=== PATIENT | male | born 1950 | race Two or more races ===

== ENCOUNTER 2016-10-04 07:55 | Inpatient (IN) | payer MEDICARE, BC ==
--- NOTE | 2016-10-03 17:08 | Pre-op HX & Phy Repo 2 SIG ---
DATE OF ADMISSION: 10/04/2016 HISTORY OF PRESENT ILLNESS: The patient is a 66-year-old, male, in overall good health with a malfunctioning Frye continent ileostomy with intermittent difficulty with intubation and recurring pouchitis. The patient has a past history of ulcerative colitis and underwent proctocolectomy with creation of a Frye type of continent ileostomy in 1999. He has required several revisions, most recently in 2013. He has done well taking Cipro and Flagyl for occasional episodes of pouchitis. In August of this year, he developed difficulty intubating with the catheter almost all the way into the pouch with his 30-Italian catheter, but he could get a 24-Italian catheter in without any difficulty. He was also having difficulty controlling symptoms of pouchitis with gas and rumbling and watery output. Cipro and Flagyl were not effective, and he was started on Omnicef (cefdinir) 300 mg every 12 hours with great improvement. He had much reduced cramping and gas, and his intubations became easier, but at times it has taken him 5 minutes to get a catheter in and has to lie on the floor. The difficulty is 3 to 4 inches into the stoma tract. The patient is scheduled to undergo pouch endoscopy, and if this indicates a surgical problem, he will be admitted and prepared for surgery the following day including laparotomy and whatever revision is appropriate. PAST MEDICAL HISTORY: MEDICATIONS: Cipro or Flagyl for pouchitis. ALLERGIES: None. OPERATIONS: See complete list at the end of this dictation. He has also undergone vasectomy in 1989, varicocelectomy in 1984, and extraction of a right ureteral kidney stone in October 2003 with a stent at that time. PHYSICAL EXAMINATION: The patient is 5 foot 10 inches and approximately 175 pounds. [place] will be examined upon arrival and dictated separately. IMPRESSION: 1. Malfunctioning Frye continent ileostomy with difficulty with intubation and recurring pouchitis, but no incontinence. 2. History of ulcerative colitis. 3. History of left upper extremity deep vein thrombosis from a PICC line in 2013. 4. STATUS POST MULTIPLE ABDOMINAL OPERATIONS: 4.1. Proctocolectomy and Frye continent ileostomy in November 1999. 4.2. Laparotomy with revision of Frye continent ileostomy nipple valve in February 2000. 4.3. Laparotomy with creation of new valve and stoma with preservation of the Frye pouch and relocation of the stoma to the left lower quadrant on 07/24/2013. 4.4. Laparotomy with complex reconstruction of Frye continent ileostomy with creation of new valve and stoma on 12/26/2013. DISCUSSION: I have had a full discussion with the patient about the pouch endoscopy, which he has undergone previously without any anesthesia or sedation given or required. Based on those findings, we will determine whether he needs more vigorous aggressive treatment of chronic pouchitis or whether there is some angulation that will require surgical revision of his pouch. Kaveh Reyes M.D. DR: ARVIN JOB#: [id number] CC:
[~2016-10-04] VITALS: Ht 175.3 cm; Wt 80.7 kg
[~2016-10-04 07:55] MED LIST: DAILY MULTIPLE1 EACH ORAL
--- NOTE | 2016-10-04 08:08 | Pre-Procedure Note/Attestation ---
Pre-Procedure Note/Attestation Complete Prior to Procedure Planned Procedure: not applicable Procedure Narrative: Frye Continent Ileostomy pouch endoscopy Indications for Procedure Pre-Operative Diagnosis: Malfunctioning Frye Continent Ileostomy with difficulty with intubation and pouchitis Attestation I attest that I discussed the nature of the procedure; its benefits; risks and complications; and alternatives (and the risks and benefits of such alternatives ), prior to the procedure, with the patient (or the patient's legal off premise service representative). I attest that, if there was a reasonable possibility of needing a blood transfusion, the patient (or the patient's legal off premise service representative) was given the [facility] standardized written summary, pursuant to the [facility] Blood Safety Act ([place] Health and Safety Code # 1645, as amended). I attest that I re-evaluated the patient just prior to the surgery and that there has been no change in the patient's H&P, except as documented below: none TONY GA Oct 04, 2016 08:08
[2016-10-04 08:23] VITALS: BP 130/88
--- NOTE | 2016-10-04 09:12 | Brief Operative Note ---
Immediate Post Operative Note Operative Note Pre-op Diagnosis: Malfunctioning Frye Continent Ileostomy with difficulty with intubation and pouchitis Procedure: Frye continent ileostomy pouch endoscopy Post-op Diagnosis: Angulations of access segment Post-op Diagnosis: same as pre-op Findings: consistent w/pre-op dx studies Surgeon: luiz Anesthesia: other - none Specimen: none Complications: none Condition: stable Fluids: none Estimated Blood Loss: none Drains: other - 24 Luxembourgish Holguin to Frye continent ileostomy pouch Implant(s) used?: TONY Flowers Oct 04, 2016 09:12
[2016-10-04 09:20] VITALS: BP 114/75
[2016-10-04] MEDS ORDERED: Zolpidem 5mg tab ORAL PRN (09:30)
[2016-10-04] MEDS ORDERED: ALLOPURINOL100 M1 ORAL (09:59)
[2016-10-04 10:22] LABS: BASOPHILS % (AUTO) 1.9 % (0.0-2.0); EOSINOPHILS % (AUTO) 2.1 % (0.0-3.0); LYMPHOCYTES % (AUTO) 21.2 % (20.0-45.0); MEAN CORPUSCULAR HEMOGLOBIN 30.7 PG (27.0-31.0); MEAN CORPUSCULAR HGB CONC 34.4 G/DL (32.0-36.0); MEAN CORPUSCULAR VOLUME 89 FL (80-99); MEAN PLATELET VOLUME 7.7 FL (6.5-10.1); MONOCYTES % (AUTO) 7.7 % (1.0-10.0); NEUTROPHILS % (AUTO) 67.2 % (45.0-75.0); PLATELET COUNT 231 K/UL (150-450); RED BLOOD COUNT 5.04 M/UL (4.70-6.10); RED CELL DISTRIBUTION WIDTH 11.6 % (11.6-14.8)
[2016-10-04] MEDS ORDERED: Lidocaine/Epinephrine 2% 20 ML VIAL INJ ONE (10:30)
[2016-10-04 10:35] LABS: INR 1.1 (0.9-1.1); PROTHROMBIN TIME 11.1 SEC (9.30-11.50)
[2016-10-04 10:38] LABS: ALANINE AMINOTRANSFERASE 21 U/L (3-41); ALBUMIN/GLOBULIN RATIO 1.3 (1.0-2.7); ANION GAP 16 (5-15); ASPARTATE AMINO TRANSFERASE 29 U/L (5-40); CALCIUM 9.6 mg/dL (8.6-10.2); CARBON DIOXIDE 24 mEQ/L (20-30); CHLORIDE 101 mEQ/L (98-107); CREATININE 1.2 mg/dL (0.7-1.2); GLOMERULAR FILTRATION RATE > 60 mL/min (>60); POTASSIUM 4.2 mEQ/L (3.4-4.9); SODIUM 141 mEQ/L (135-145); TOTAL PROTEIN 7.2 g/dL (6.6-8.7)
[2016-10-04 10:39] LABS: HEMOLYSIS 7; IRON 178 ug/dL (59-158); TOTAL IRON BINDING CAPACITY 367 ug/dL (250-400)
--- NOTE | 2016-10-04 10:40 | Diagnostic Imaging Report ---
Indication: Chest Pain Comparison: 12/25/13 A single view chest radiograph was obtained. Findings: Lungs are clear. Cardiac mediastinal silhouette is normal. Bones are osteopenic. Impression: No acute findings
[2016-10-04 10:48] LABS: FERRITIN 125 ng/mL (10-230)
--- NOTE | 2016-10-04 10:58 | Pre-op HX & Phy Repo 2 SIG ---
DATE OF ADMISSION: 10/04/2016 HISTORY OF PRESENT ILLNESS: Please see previously dictated history. The patient states that he is taking allopurinol daily. He is otherwise in stable health with no changes from the previous dictation. PHYSICAL EXAMINATION: VITAL SIGNS: The patient is 5 feet 10 inches, 175 pounds. HEENT: Within normal limits. LUNGS: Clear. HEART: Regular rhythm. BREASTS: Without masses. ABDOMEN: Soft and flat with multiple healed scars, and the stoma of the Frye continent ileostomy pouch is low in the left lower quadrant. There is no evidence of abdominal wall hernia. Testes and scrotum are within normal limits. RECTAL: Status post proctectomy. EXTREMITIES: Without edema. Pulses 3+ femoral to pedal bilaterally. NEUROLOGIC: Physiologic. IMPRESSION: 1. 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 2. History of ulcerative colitis. 3. History of left upper extremity deep vein thrombosis due to a PICC line in 2013. 4. History of hyperuricemia treated with allopurinol. 4. STATUS POST MULTIPLE ABDOMINAL OPERATIONS: 1. Proctocolectomy and Frye continent ileostomy in November 1999. 2. Laparotomy with revision of Frye continent ileostomy nipple valve February 2000 3. Laparotomy with creation of new valve and stoma with preservation of Frye pouch and relocation of the stoma to the left lower quadrant 07/14- 4. Laparotomy with complex reconstruction of Frye continent ileostomy with creation of new valve and stoma 12/26/2013. PLAN: The patient has undergone pouch endoscopy which reveals multiple angulations of the access segment, but the pouch itself appears healthy with no sign of chronic pouchitis, and the nipple valve was well-formed. The patient will be admitted to undergo a bowel prep, insertion of a PICC line, intravenous hydration, and be prepared for surgery in the morning with preoperative intravenous antibiotics and subcutaneous heparin. He will have an indwelling catheter in his pouch to continuous drainage throughout the day today and leading up to the surgery tomorrow. I have had a full discussion with the patient and his regarding the nature of surgery to include laparotomy and takedown of the stoma and revision based on operative findings, and that the pouch may not need to be opened, but the angulations of the access segment corrected. I have discussed the options of revising the existing pouch, resecting the pouch and creating a new Frye continent ileostomy or resecting the pouch and creating a conventional ileostomy requiring that he wear an external appliance which he has never had and which he certainly hopes to avoid. I have discussed the risks of surgery including bleeding, infection, injury to adjacent structures or organs, recurrent difficulties with the pouch or stoma that could lead to additional treatments or operations, deep vein thrombosis despite prophylaxis, potential need for catheter gastrostomy and need for urinary Holguin catheter, anesthetic reactions, etc. All questions have been answered. He understands and agrees to proceed. Kaveh Reyes M.D. DR: FRANDY JOB#: [id number] CC: ARIEL
[2016-10-04] MEDS ORDERED: Heparin Sod 1000 units/ml 10ml INJ ONE (11:00)
[2016-10-04 11:49] LABS: APPEARANCE,URINE CLEAR; KETONES,URINE 2+ (NEGATIVE); LEUKOCYTE ESTERASE ,URINE NEGATIVE (NEGATIVE); NITRITE,URINE NEGATIVE (NEGATIVE); PH,URINE 6.5 (4.5-8.0); PROTEIN,URINE NEGATIVE (NEGATIVE); UROBILINOGEN,URINE NORMAL MG/DL (0.0-1.0)
[2016-10-04 12:00] VITALS: BP 117/69
[2016-10-04] MEDS ORDERED: Sodium Bicarbonate 8.4% 50ml Inj IV ONE (12:00)
[2016-10-04 12:08] LABS: BACTERIA,URINE FEW /HPF
[2016-10-04] MEDS: Neomycin Sulfate 500mg Tab ORAL SCH ×3 (12:22→21:44)
[2016-10-04] MEDS ORDERED: Heparin 2000 units/Ns 1000ml INJ ONE (12:30)
[2016-10-04] MEDS ORDERED: Lidocaine 1% Plain 30 ml INJ ONE (12:30)
--- NOTE | 2016-10-04 12:44 | General Progress Note ---
Progress Note Progress Note Pouch endoscopy revealed angulations of the access segment, no severe pouchitis , nipple valve well formed Hgb 15.5 BUN 17 Cr 1.2 Iron,ferritin wnl B12 low normal (319) Imp. Malfunctioning Frye continent ileostomy with severe difficulty with intubation Plan: Prepare for surgery in AM IV hydration as soon as PICC is in place f/u CBC,BMP in AM TONY GA Oct 04, 2016 12:44
[2016-10-04] MEDS ORDERED: Vitamin B12 1000mcg/ml Inj IM ONE (14:00)
--- NOTE | 2016-10-04 14:21 | Anethesia Preoperative Eval ---
Anesthesia Pre-op PMH/ROS General Date of Evaluation: Oct 04, 2016 Time of Evaluation: 14:15 Anesthesiologist: Nicki ASA Score: ASA 3 Mallampati Score Class I : Soft palate, uvula, fauces, pillars visible Class II: Soft palate, uvula, fauces visible Class III: Soft palate, base of uvula visible Class IV: Only hard plate visible Mallampati Classification: Class II Surgeon: Eric Diagnosis: Malfunctioning Frye pouch Surgical Procedure: Ex. laparotomy revision of continent pouch Anesthesia History: none Family History: no anesthesia problems Allergies: Coded Allergies: ERYTHROMYCIN BASE (Verified Adverse Reaction, Severe, Nausea/Vomiting/GI Upset, 10/04/16) Past Medical History Cardiovascular: Denies: CAD, HTN, PA, arrhythmia, other, valve dz Pulmonary: Denies: COPD, ANYA, asthma, other Gastrointestinal/Genitourinary: Reports: GERD, other - h/o UC s/p colectomy, Denies: CRI, ESRD Neurologic/Psychiatric: Denies: CVA, TIA, dementia, depression/anxiety, other Endocrine: Denies: DM, hypothyroidism, other, steroids HEENT: Denies: IONE (L), IONE (R), cataract (L), cataract (R), glaucoma, other Hematology/Immune: Denies: DVT, anemia, bleeding disorder, other Musculoskeletal/Integumentary: Denies: DDD, DJD, OA, RA, edema, other PMH Narrative: as above PSxH Narrative: multiple abdominal Sx for creation and maintenance of continent pouch, vasectomy , removal of kidney stone Anesthesia Pre-op Phys. Exam Physician Exam Last Vital Signs Date Time Temp Pulse Resp B/P Pulse Ox O2 Delivery O2 Flow Rate FiO2 10/04/16 12:00 97.5 83 18 117/69 97 Room Air Constitutional: NAD Neurologic: CN 2-12 intact Cardiovascular: RRR, no M/R/G Respiratory: CTA Gastrointestinal: other - multiple scars colostomy in plsce Airway Exam Mallampati Score: Class II MO: limited Neck: stiff ROM: limited Teeth: missing Dentures: no lower, no upper Anesthesia Pre-op A/P Labs Hematology Test 10/04/16 10:10 White Blood Count 6.0 K/UL (4.8-10.8) Red Blood Count 5.04 M/UL (4.70-6.10) Hemoglobin 15.5 G/DL (14.2-18.0) Hematocrit 44.9 % (42.0-52.0) Mean Corpuscular Volume 89 FL (80-99) Mean Corpuscular Hemoglobin 30.7 PG (27.0-31.0) Mean Corpuscular Hemoglobin Concent 34.4 G/DL (32.0-36.0) Red Cell Distribution Width 11.6 % (11.6-14.8) Platelet Count 231 K/UL (150-450) Mean Platelet Volume 7.7 FL (6.5-10.1) Neutrophils (%) (Auto) 67.2 % (45.0-75.0) Lymphocytes (%) (Auto) 21.2 % (20.0-45.0) Monocytes (%) (Auto) 7.7 % (1.0-10.0) Eosinophils (%) (Auto) 2.1 % (0.0-3.0) Basophils (%) (Auto) 1.9 % (0.0-2.0) Coagulation Test 10/04/16 10:10 Prothrombin Time 11.1 SEC (9.30-11.50) Prothromb Time International Ratio 1.1 (0.9-1.1) Activated Partial Thromboplast Time 27 SEC (23-33) Chemistry Test 10/04/16 10:10 Sodium Level 141 mEQ/L (135-145) Potassium Level 4.2 mEQ/L (3.4-4.9) Chloride Level 101 mEQ/L (98-107) Carbon Dioxide Level 24 mEQ/L (20-30) Anion Gap 16 (5-15) H Blood Urea Nitrogen 17 mg/dL (7-23) Creatinine 1.2 mg/dL (0.7-1.2) Estimat Glomerular Filtration Rate > 60 mL/min (>60) Glucose Level 96 mg/dL (74-106) Calcium Level 9.6 mg/dL (8.6-10.2) Iron Level 178 ug/dL (59-158) H Total Iron Binding Capacity 367 ug/dL (250-400) Percent Iron Saturation 49 % (15-50) Unsaturated Iron Binding 189 ug/dL (112-346) Ferritin 125 ng/mL (10-230) Total Bilirubin 0.8 mg/dL (0.0-1.2) Aspartate Amino Transf (AST/SGOT) 29 U/L (5-40) Alanine Aminotransferase (ALT/SGPT) 21 U/L (3-41) Alkaline Phosphatase 60 U/L (40-129) Total Protein 7.2 g/dL (6.6-8.7) Albumin 4.1 g/dL (3.5-5.2) Globulin 3.1 g/dL Albumin/Globulin Ratio 1.3 (1.0-2.7) Vitamin B12 Level 319 pg/mL (211-946) Folate Pending Studies Pre-op Studies: EKG Risk Assessment & Plan Assessment: ASA 3 Plan: GA with ETT Status Change Before Surgery: No Pre-Antibiotics Drug: as scheduled ALFREDO WASHINGTON M.D. Oct 04, 2016 14:21
[2016-10-04] MEDS: D5 1/2NS w/KCl 20mEq 1,000 ML IV SCH (14:59)
--- NOTE | 2016-10-04 15:10 | Diagnostic Imaging Report ---
Indications: Long-term central IV access required for intravenous therapy Technique: The procedure indications, risks, and alternatives were explained to the patient who understands and gives consent to proceed. Strict aseptic technique was utilized, including hand washing, use of hat and mask, use of sterile gown and gloves, sterile ultrasound gel and probe cover, prepping of right arm skin with 2% chlorhexidine solution, and application of full body sterile barrier over this area. Skin and subcutaneous soft tissues were infiltrated with 1% lidocaine and sodium bicarbonate. A small dermatotomy was made, through which the patent adequate size right basilic vein was punctured percutaneously under direct sonographic guidance with a 21-gauge needle. Exchange was made over a 0.018 inch guidewire for a 5 Moroccan peel-away sheath. A PDV Power-PICC 5 Moroccan dual lumen central venous catheter was cut to appropriate length, then advanced through the sheath over the guidewire under direct fluoroscopic guidance into the superior vena cava. Guidewire and sheath were removed. Both catheter ports were aspirated, then flushed with heparinized saline. Final image was obtained. Catheter was secured the skin with adhesive dressing. Patient tolerated procedure well without immediate complications. Total fluoroscopy time: 0.1 minutes. Dose-area product: 0.8 dGy-cm2 Findings: Final image demonstrates tip of the central venous catheter at the level of superior vena cava-right atrial junction, 45 cm in from the skin. Both ports aspirate and flush freely. IMPRESSION: Placement of peripherally inserted central venous catheter via right basilic vein, working well.
[2016-10-04 16:00] VITALS: BP 110/76
[2016-10-04 20:00] VITALS: BP 111/80
--- NOTE | 2016-10-04 21:28 | Procedure Note ---
DATE OF PROCEDURE: 10/04/2016 ENDOSCOPY PROCEDURE REPORT ENDOSCOPIST: Kaveh Reyes M.D. ANESTHESIA: None. SEDATION: None. PRE-ENDOSCOPY DIAGNOSES: 1. 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 2. History of ulcerative colitis. 3. Status post proctocolectomy and Frye pouch with several revisions. POST-ENDOSCOPY DIAGNOSES: 1. 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 2. History of ulcerative colitis. 3. Status post proctocolectomy and Frye pouch with several revisions. ENDOSCOPY PERFORMED: Frye continent ileostomy pouch endoscopy. FINDINGS: Multiple angulations of the access segment with a normal pouch and well-formed nipple valve. DESCRIPTION OF PROCEDURE: The patient was positioned supine in the GI lab without any sedation or anesthesia given or required. Using a GIF-P140 endoscope, the stoma in the left lower quadrant was entered. There was an angulation within the first 2 cm and then at 4 to 5 cm another deep angulation. This sharp angulation was negotiated and then the pouch entered and readily insufflated. The pouch mucosa appeared normal without any severe pouchitis. Retroflex views revealed a circumferentially well-formed nipple valve. The distance from the stoma orifice to the tip of the nipple valve was approximately 8 to 9 cm. Following removal of the endoscope, I attempted to insert a 28-S[place]ankan Holguin catheter and then a 26-[place]ankan Holguin catheter into the pouch, but could not negotiate the angulations, however, a 24-[place]an Holguin could be manipulated well into the pouch to decompress the pouch and it was taped in place and connected to continuous gravity drainage bag. The patient will be admitted and prepared for surgical revision of his malfunctioning Frye continent ileostomy. He tolerated the pouch endoscopy well. Kaveh Reyes M.D. DR: KARLA JOB#: [id number] CC:
[2016-10-04] MEDS ORDERED: Acetaminophen 500mg (ES) tab ORAL ONE (23:45)
[2016-10-04] MEDS ORDERED: Acetaminophen 500mg (ES) tab ORAL PRN (23:45)
[2016-10-05] VITALS (14 sets, daily range): BP systolic 96–145; BP diastolic 63–79
[2016-10-05] MEDS: D5 1/2NS w/KCl 20mEq 1,000 ML IV SCH (03:41)
[2016-10-05 05:54] LABS: BASOPHILS % (AUTO) 2.3 % (0.0-2.0); EOSINOPHILS % (AUTO) 4.8 % (0.0-3.0); LYMPHOCYTES % (AUTO) 25.1 % (20.0-45.0); MEAN CORPUSCULAR HEMOGLOBIN 30.4 PG (27.0-31.0); MEAN CORPUSCULAR HGB CONC 33.8 G/DL (32.0-36.0); MEAN CORPUSCULAR VOLUME 90 FL (80-99); MEAN PLATELET VOLUME 7.7 FL (6.5-10.1); MONOCYTES % (AUTO) 9.3 % (1.0-10.0); NEUTROPHILS % (AUTO) 58.6 % (45.0-75.0); PLATELET COUNT 196 K/UL (150-450); RED BLOOD COUNT 4.85 M/UL (4.70-6.10)
[2016-10-05 06:18] LABS: ANION GAP 12 (5-15); CALCIUM 8.9 mg/dL (8.6-10.2); CARBON DIOXIDE 25 mEQ/L (20-30); CHLORIDE 102 mEQ/L (98-107); GLOMERULAR FILTRATION RATE > 60 mL/min (>60); HEMOLYSIS 9; POTASSIUM 3.8 mEQ/L (3.4-4.9); SODIUM 139 mEQ/L (135-145)
[2016-10-05] MEDS ORDERED: Heparin 5000 units/ml inj SUBQ ONE (07:30)
[2016-10-05] MEDS ORDERED: Ampicillin/Sulbactam Sod 3 GM in NS 110 ML IVPB SCH (08:00)
[2016-10-05] MEDS ORDERED: metroNIDAZOLE 500mg 100 ML IVPB SCH (08:00)
--- NOTE | 2016-10-05 09:24 | Pre-Procedure Note/Attestation ---
Pre-Procedure Note/Attestation Complete Prior to Procedure Planned Procedure: not applicable Procedure Narrative: laparotomy and revision of Frye Continent Ileostomy Indications for Procedure Pre-Operative Diagnosis: Malfunctioning Frye Continent Ileostomy with difficulty with intubation Attestation I attest that I discussed the nature of the procedure; its benefits; risks and complications; and alternatives (and the risks and benefits of such alternatives ), prior to the procedure, with the patient (or the patient's legal financial services representative). I attest that, if there was a reasonable possibility of needing a blood transfusion, the patient (or the patient's legal financial services representative) was given the [place] [facility] standardized written summary, pursuant to the [facility] Blood Safety Act ([place] Health and Safety Code # 1645, as amended). I attest that I re-evaluated the patient just prior to the surgery and that there has been no change in the patient's H&P, except as documented below:none TONY GA Oct 05, 2016 09:24
[2016-10-05] MEDS ORDERED: Bacitracin 50000 Units Vial ONE (09:26)
[2016-10-05] MEDS ORDERED: NS Irrig 1000ml IRRIG ONE (10:00)
[2016-10-05] MEDS ORDERED: LR 1000ml 1,000 ML IVLG SCH ×2 (10:43→13:30)
[2016-10-05] MEDS ORDERED: Ketorolac 30mg Inj IV PRN ×3 (10:45→15:00)
[2016-10-05] MEDS ORDERED: DiphenhydrAMINE 50mg/ml Inj IVP PRN ×2 (10:45→12:45)
[2016-10-05] MEDS ORDERED: Hydromorphone 0.5mg/0.5ml inj IVP PRN ×2 (10:45→13:15)
[2016-10-05] MEDS ORDERED: fentaNYL 100 mcg/2 mL IV PRN ×2 (10:45→13:15)
[2016-10-05] MEDS ORDERED: Morphine Sulfate 4mg/ml Inj SUBQ PRN (12:45)
[2016-10-05] MEDS ORDERED: Naloxone 0.4mg/ml Inj IVP PRN (12:45)
[2016-10-05] MEDS ORDERED: Rate Change PCA 1 Each MISC PRN (12:45)
[2016-10-05] MEDS ORDERED: Morphine Sulfate 2mg/ml Inj IVP PRN (12:45)
--- NOTE | 2016-10-05 12:46 | Immediate Post-Op Evaluation ---
Immediate Post-Op Evalulation Immediate Post-Op Evalulation Procedure: Ex. laparotomy lysis of adhesions, revision of continent pouch Date of Evaluation: Oct 05, 2016 Time of Evaluation: 12:44 IV Fluids: 800 Blood Products: Albumin 250 Estimated Blood Loss: >50 Urinary Output: 150 Blood Pressure Systolic: 113 Blood Pressure Diastolic: 72 Pulse Rate: 81 Respiratory Rate: 20 O2 Sat by Pulse Oximetry: 99 Temperature (Fahrenheit): 98.0 Pain Score (1-10): 2 Nausea: No Vomiting: No Complications none Patient Status: reacts, patent, extubated, none Hydration Status: adequate ALFREDO WASHINGTON M.D. Oct 05, 2016 12:46
--- NOTE | 2016-10-05 12:46 | Brief Operative Note ---
Immediate Post Operative Note Operative Note Pre-op Diagnosis: Malfunctioning Frye Continent Ileostomy with difficulty with intubation Procedure: laparotomy and revision Frye Pouch access segment Post-op Diagnosis: redundant access segment Post-op Diagnosis: same as pre-op Findings: consistent w/pre-op dx studies Surgeon: luiz Mop Handle Assembler: nadja Anesthesiologist: avani Anesthesia: general Specimen: yes - Frye pouch stoma Complications: none Condition: stable Fluids: see anesthesia record Drains: other - 30Fr Holguin to Frye Pouch Implant(s) used?: No TONY GA Oct 05, 2016 12:46
[2016-10-05] MEDS: PCA Morphine 1mg/ml 30 ML IV PRN (13:20)
[2016-10-05] MEDS ORDERED: metroNIDAZOLE 500mg 100 ML IV SCH (15:00)
[2016-10-05] MEDS ORDERED: Ampicillin/Sulbactam Sod 3 GM in NS 110 ML IV SCH (15:00)
[2016-10-05] MEDS: PCA shift volume MISC SCH ×2 (15:00→23:34)
[2016-10-05] MEDS ORDERED: LORazepam 1mg tab SL PRN ×2 (15:00→20:00)
[2016-10-05] MEDS ORDERED: D5 1/4NS w/KCl 20mEq 1,000 ML IV SCH (16:00)
[2016-10-05] MEDS ORDERED: Metoclopramide 10mg/2ml Inj IVP ONE (18:30)
[2016-10-05] MEDS ORDERED: Metoclopramide 10mg/2ml Inj IVP PRN (22:00)
--- NOTE | 2016-10-05 23:28 | Operative Note - Dictated ---
DATE OF OPERATION: 10/05/2016 SURGEON: Kaveh Reyes M.D. SITE INSPECTOR SURGEON: Noel Powers M.D. ANESTHESIOLOGIST: Benito Caceres M.D. TYPE OF ANESTHESIA: General endotracheal. PREOPERATIVE DIAGNOSES: 1. 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 2. History of ulcerative colitis. 3. Status post multiple abdominal operations. 3.1. Proctocolectomy and Frye continent ileostomy in 11/1999. 3.2. Laparotomy with revision of Frye continent ileostomy nipple valve in 02/2000. 3.3. Laparotomy with creation of new valve and stoma with preservation of the Frye pouch and relocation of the stoma to the left lower quadrant on 07/24/2013. 3.4. Laparotomy with complex reconstruction of Frye continent ileostomy with creation of new valve and stoma on 12/26/2013. POSTOPERATIVE DIAGNOSES: 1. 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 2. History of ulcerative colitis. 3. Status post multiple abdominal operations. 3.1. Proctocolectomy and Frye continent ileostomy in 11/1999. 3.2. Laparotomy with revision of Frye continent ileostomy nipple valve in 02/2000. 3.3. Laparotomy with creation of new valve and stoma with preservation of the Frye pouch and relocation of the stoma to the left lower quadrant on 07/24/2013. 3.4. Laparotomy with complex reconstruction of Frye continent ileostomy with creation of new valve and stoma on 12/26/2013. OPERATION PERFORMED: Laparotomy with revision of Frye continent ileostomy access segment and stoma. DESCRIPTION OF PROCEDURE: The patient was taken to the operating room and under general endotracheal anesthesia with sequential compression device stockings and Holguin catheter in place, having received intravenous antibiotics and preoperative subcutaneous heparin, the patient was prepped and draped in the usual fashion. Initially, the stoma in the left lower quadrant was sealed with a Tegaderm. Previous midline incision was reopened from just above the umbilicus to the pubis. There were moderate diffuse adhesions throughout the abdominal cavity and to the undersurface of the incision. The fascia was somewhat attenuated, but there were no hernias. The pouch was densely adherent into the pelvis to the bladder and into the presacral fossa. I had difficulty inserting a 28-Jordanian Holguin into the pouch and it was evident that the access segment was redundant by approximately 6 cm; however, even with manual palpation, I could not get the 28-Jordanian Holguin catheter to go in, the 24-Jordanian catheter went in quite readily. I could feel it deep in the pelvis within the pouch. I then circumscribed the stoma in elliptical fashion and transverse orientation and brought the stoma and access segment with its mesentery into the abdominal cavity. Placing the access segment on slight stretch, I could now readily insert the 28-Jordanian Holguin catheter with only one area of slight resistance requiring minimal pressure to pass through into the pouch. I also used a 30-Jordanian Holguin catheter and was able to readily insert it into the pouch. I then manually occluded the afferent bowel leading to the pouch and distended the pouch with 500 mL of saline including the volume of the afferent bowel. I then removed the catheter. There was no evidence of incontinence. I reinserted the catheter and decompressed the pouch. I did not feel that opening the pouch was indicated. After ascertaining that hemostasis was secure and having carefully protected the bladder and ureters, the pouch lay back into the pelvis as I had never fully mobilized it as this was not necessary. I was then able to readily bring through the redundant access segment through the stoma orifice in the left lower quadrant and sutured the pouch to the anterior peritoneum with interrupted 3-0 Vicryl sutures. Then the redundancy of the access segment was excised and the stoma primarily matured with continuous 2-0 chromic locking suture starting at the 3 o'clock and 9 o'clock positions. I had divided the mesentery near the skin level to the redundant portion of the access segment ligating with 3-0 Vicryl. A very satisfactory stoma was achieved. The 30-Jordanian Holguin catheter was confirmed to be positioned well into the apex of the pouch deep in the pelvis. It was marked at the level of the stoma with a 3-0 silk and then sutured to the skin with two sutures of 2-0 silk. It was flushed and connected to a gravity drainage bag. The upper abdomen was completely sealed with adhesions and I did not feel it was indicated to extend the incision and do a more prolonged dissection in order to do a catheter gastrostomy for decompression since there are no anastomoses. The anesthesiologist placed an orogastric tube to decompress wherever material was in the stomach and then removed it. The field was protected with antibiotic-soaked lap sponges throughout the procedure. After ascertaining that hemostasis was secure the midline incision was closed in one layer with continuous #1 Prolene inverting the knots. The subcutaneous tissues were again irrigated with antibiotic solution and the skin closed with jesus. Dry sterile dressings were applied. Final sponge and needle counts were correct. The patient tolerated the procedure well and left the operating room in good condition. Kaveh Reyes M.D. DR: Deborah JOB#: [id number] CC: ARIEL
[2016-10-05] MEDS: D5 1/4NS w/KCl 20mEq 1,000 ML IV SCH (23:34)
[2016-10-06] VITALS: BP 124/57
[2016-10-06] MEDS: Ampicillin/Sulbactam Sod 3 GM in NS 110 ML IV SCH ×4 (00:27→17:43)
[2016-10-06 04:00] VITALS: BP 112/54
[2016-10-06] MEDS: D5 1/4NS w/KCl 20mEq 1,000 ML IV SCH ×2 (04:16→14:55)
[2016-10-06] MEDS: metroNIDAZOLE 500mg 100 ML IV SCH ×4 (06:21→18:47)
[2016-10-06 06:23] LABS: EOSINOPHILS % (AUTO) 2.7 % (0.0-3.0); MEAN CORPUSCULAR HGB CONC 34.3 G/DL (32.0-36.0); MEAN CORPUSCULAR VOLUME 90 FL (80-99); MEAN PLATELET VOLUME 7.2 FL (6.5-10.1); MONOCYTES % (AUTO) 7.7 % (1.0-10.0); NEUTROPHILS % (AUTO) 80.7 % (45.0-75.0); PLATELET COUNT 156 K/UL (150-450); RED BLOOD COUNT 4.12 M/UL (4.70-6.10); WHITE BLOOD COUNT 8.9 K/UL (4.8-10.8)
[2016-10-06] MEDS: PCA Morphine 1mg/ml 30 ML IV PRN (06:26)
[2016-10-06 06:50] LABS: ANION GAP 14 (5-15); CARBON DIOXIDE 25 mEQ/L (20-30); CHLORIDE 99 mEQ/L (98-107); CREATININE 1.1 mg/dL (0.7-1.2); GLOMERULAR FILTRATION RATE > 60 mL/min (>60); HEMOLYSIS 5; POTASSIUM 4.1 mEQ/L (3.4-4.9); SODIUM 138 mEQ/L (135-145)
[2016-10-06] MEDS: PCA shift volume MISC SCH ×3 (07:19→23:43)
[2016-10-06 08:00] VITALS: BP 116/59
[2016-10-06] MEDS ORDERED: Naloxone 0.4mg/ml Inj IVP PRN (08:19)
[2016-10-06] MEDS ORDERED: Rate Change PCA 1 Each MISC PRN (08:30)
[2016-10-06] MEDS ORDERED: DiphenhydrAMINE 50mg/ml Inj IVP PRN (08:30)
[2016-10-06] MEDS ORDERED: PCA Morphine 1mg/ml 30 ML IV PRN (08:30)
--- NOTE | 2016-10-06 08:32 | General Progress Note ---
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 Chest clear cor - Reg rhythm Abdomen soft, flat, incision clean, stoma pink Urine 250cc/8hours BCIR ileo - scant WBC 8900 Hgb 12.8 BUN 14 Cr 1.1 Imp. Ileus Plan: NPO Mobilize Continue Holguin (pelvic dissection) f/u labs TONY GA Oct 06, 2016 08:32
[2016-10-06] MEDS ORDERED: ALLOPURINOL100 M1 ORAL (08:42)
[2016-10-06] MEDS ORDERED: Morphine Sulfate 2mg/ml Inj IVP PRN (08:45)
[2016-10-06] MEDS ORDERED: Allopurinol 100mg Tab ORAL SCH ×2 (09:00)
[2016-10-06] MEDS ORDERED: Morphine Sulfate 4mg/ml Inj SUBQ PRN (09:45)
[2016-10-06] MEDS: Allopurinol 100mg Tab ORAL SCH (10:59)
--- NOTE | 2016-10-06 11:37 | 48 Hour Post Anesthesia Eval ---
Post Anesthesia Evaluation Procedure: Ex. laparotomy lysis of adhesions, revision of continent pouch Date of Evaluation: Oct 06, 2016 Time of Evaluation: 11:35 Blood Pressure Systolic: 124 0: 68 Pulse Rate: 74 Respiratory Rate: 20 Temperature (Fahrenheit): 97.4 O2 Sat by Pulse Oximetry: 98 Airway: patent Nausea: No Vomiting: No Pain Intensity: 3 Hydration Status: adequate Cardiopulmonary Status: stable Mental Status/LOC: patient returned to baseline Follow-up Care/Observations: n/a Post-Anesthesia Complications: none Follow-up care needed: N/A ALFREDO WASHINGTON M.D. Oct 06, 2016 11:37
[2016-10-06] MEDS ORDERED: Tubing IV Secondary IV ONE (14:42)
[2016-10-06] MEDS ORDERED: NS Irrig 1000ml ONE (14:42)
[2016-10-06 16:00] VITALS: BP 127/60
[2016-10-06 20:00] VITALS: BP 117/51
[2016-10-07] VITALS: BP 121/70
[2016-10-07] MEDS: metroNIDAZOLE 500mg 100 ML IV SCH ×2 (00:11→05:52)
[2016-10-07] MEDS: D5 1/4NS w/KCl 20mEq 1,000 ML IV SCH ×4 (00:11→20:00)
[2016-10-07] MEDS: Ampicillin/Sulbactam Sod 3 GM in NS 110 ML IV SCH ×3 (00:11→11:42)
--- NOTE | 2016-10-07 03:11 | Cardiology Report ---
APPROVED REPORT EKG Measurement Heart [id number] Normal sinus rhythm Normal ECG
[2016-10-07 07:04] LABS: BASOPHILS % (AUTO) 0.9 % (0.0-2.0); EOSINOPHILS % (AUTO) 6.4 % (0.0-3.0); LYMPHOCYTES % (AUTO) 12.9 % (20.0-45.0); MEAN CORPUSCULAR HEMOGLOBIN 30.9 PG (27.0-31.0); MEAN CORPUSCULAR HGB CONC 34.4 G/DL (32.0-36.0); MEAN CORPUSCULAR VOLUME 90 FL (80-99); MEAN PLATELET VOLUME 7.4 FL (6.5-10.1); MONOCYTES % (AUTO) 8.2 % (1.0-10.0); NEUTROPHILS % (AUTO) 71.5 % (45.0-75.0); PLATELET COUNT 129 K/UL (150-450); RED BLOOD COUNT 3.99 M/UL (4.70-6.10); RED CELL DISTRIBUTION WIDTH 11.8 % (11.6-14.8); WHITE BLOOD COUNT 7.5 K/UL (4.8-10.8)
[2016-10-07 07:11] LABS: ANION GAP 11 (5-15); CALCIUM 8.2 mg/dL (8.6-10.2); CARBON DIOXIDE 26 mEQ/L (20-30); CHLORIDE 102 mEQ/L (98-107); GLOMERULAR FILTRATION RATE > 60 mL/min (>60); HEMOLYSIS 7; POTASSIUM 4.1 mEQ/L (3.4-4.9); SODIUM 139 mEQ/L (135-145)
[2016-10-07] MEDS: PCA shift volume MISC SCH ×3 (07:23→23:13)
[2016-10-07 08:42] VITALS: BP 127/77
[2016-10-07] MEDS: Allopurinol 100mg Tab ORAL SCH (08:42)
[2016-10-07] MEDS ORDERED: PCA Morphine 1mg/ml 30 ML IV PRN ×2 (09:30→11:00)
[2016-10-07] MEDS ORDERED: Naloxone 0.4mg/ml Inj IVP PRN (09:33)
[2016-10-07] MEDS ORDERED: Morphine Sulfate 4mg/ml Inj SUBQ PRN (09:45)
[2016-10-07] MEDS ORDERED: Rate Change PCA 1 Each MISC PRN (09:45)
--- NOTE | 2016-10-07 09:47 | General Progress Note ---
Progress Note Progress Note AVSS Ambulating in room only. Comfortable with DEAN OF INSTRUCTION - nausea relieved by Reglan Abdomen soft, flat, healing nicely Urine 925/24hours but large volume dilute urine this AM BCIR ileo scant enteric WBC 7500 Hgb 12.3 (stable) Platelets 129,000 BMP-wnl BUN 11 Cr 1.0 Imp. Ileus Plan: NPO Increase ambulation d/c continuous basal infusion of DEAN OF INSTRUCTION d/c Flagyl continue Holguin (pelvic dissection) monitor I&O TONY GA Oct 07, 2016 09:47
[2016-10-07] MEDS ORDERED: Morphine Sulfate 2mg/ml Inj IVP PRN (10:45)
[2016-10-07 12:14] VITALS: BP 115/73
[2016-10-07] MEDS ORDERED: DiphenhydrAMINE 50mg/ml Inj IVP PRN (14:30)
[2016-10-07 17:00] VITALS: BP 116/65
[2016-10-07] MEDS: Ampicillin/Sulbactam Sod 3 GM in NS 55 ML IV SCH (17:33)
[2016-10-07 20:00] VITALS: BP 119/73
[2016-10-08] MEDS: Ampicillin/Sulbactam Sod 3 GM in NS 55 ML IV SCH ×4 (00:41→18:01)
[2016-10-08 01:00] VITALS: BP 150/75
[2016-10-08 04:00] VITALS: BP 150/83
[2016-10-08] MEDS: D5 1/4NS w/KCl 20mEq 1,000 ML IV SCH ×2 (06:30→15:51)
[2016-10-08] MEDS: PCA shift volume MISC SCH ×3 (07:00→23:13)
[2016-10-08 07:09] LABS: ANION GAP 13 (5-15); CALCIUM 8.6 mg/dL (8.6-10.2); CARBON DIOXIDE 26 mEQ/L (20-30); CHLORIDE 100 mEQ/L (98-107); GLOMERULAR FILTRATION RATE > 60 mL/min (>60); HEMOLYSIS 8; SODIUM 139 mEQ/L (135-145)
[2016-10-08 07:39] LABS: BASOPHILS % (AUTO) 1.1 % (0.0-2.0); EOSINOPHILS % (AUTO) 5.5 % (0.0-3.0); LYMPHOCYTES % (AUTO) 11.1 % (20.0-45.0); MEAN CORPUSCULAR HEMOGLOBIN 31.7 PG (27.0-31.0); MEAN CORPUSCULAR HGB CONC 35.2 G/DL (32.0-36.0); MEAN CORPUSCULAR VOLUME 90 FL (80-99); MONOCYTES % (AUTO) 8.8 % (1.0-10.0); NEUTROPHILS % (AUTO) 73.5 % (45.0-75.0); PLATELET COUNT 136 K/UL (150-450); RED BLOOD COUNT 4.08 M/UL (4.70-6.10); RED CELL DISTRIBUTION WIDTH 11.7 % (11.6-14.8); WHITE BLOOD COUNT 7.4 K/UL (4.8-10.8)
[2016-10-08 08:36] VITALS: BP 158/85
[2016-10-08] MEDS: Allopurinol 100mg Tab ORAL SCH (09:08)
[2016-10-08] MEDS ORDERED: Naloxone 0.4mg/ml Inj IVP PRN (10:44)
[2016-10-08] MEDS ORDERED: Rate Change PCA 1 Each MISC PRN (10:45)
[2016-10-08] MEDS ORDERED: Morphine Sulfate 2mg/ml Inj IVP PRN (10:45)
--- NOTE | 2016-10-08 10:55 | General Progress Note ---
Progress Note Progress Note AVSS Ambulating in hallways, minimal use of OIL DEVELOPER. Abdomen soft, flat, healing nicely Urine up 1730 BCIR ileo 265 WBC 7400 Hgb 12.9 Platelets up 136,000 BMP - wnl Imp. Slowly resolving ileus Plan: Continue NPO D/C urinary Holguin in early AM TONY GA Oct 08, 2016 10:55
[2016-10-08] MEDS ORDERED: PCA Morphine 1mg/ml 30 ML IV PRN (11:00)
[2016-10-08 11:56] VITALS: BP 153/76
[2016-10-08] MEDS ORDERED: Morphine Sulfate 4mg/ml Inj SUBQ PRN (12:45)
[2016-10-08] MEDS ORDERED: DiphenhydrAMINE 50mg/ml Inj IVP PRN (14:30)
[2016-10-08 16:00] VITALS: BP 150/92
[2016-10-08] MEDS: Acetaminophen 650mg/20.3ml ORAL PRN (18:01)
[2016-10-08 20:00] VITALS: BP 149/77
[2016-10-09] VITALS: BP 140/74
[2016-10-09] MEDS: D5 1/4NS w/KCl 20mEq 1,000 ML IV SCH ×3 (00:47→21:44)
[2016-10-09] MEDS: Ampicillin/Sulbactam Sod 3 GM in NS 55 ML IV SCH ×3 (00:47→12:28)
[2016-10-09] MEDS: Acetaminophen 650mg/20.3ml ORAL PRN ×2 (01:38→22:51)
[2016-10-09 04:00] VITALS: BP 135/72
[2016-10-09] MEDS: PCA shift volume MISC SCH (07:12)
[2016-10-09] MEDS: Allopurinol 100mg Tab ORAL SCH (08:19)
[2016-10-09 08:33] VITALS: BP 155/77
--- NOTE | 2016-10-09 09:02 | General Progress Note ---
Progress Note Progress Note AVSS Feeling well, not using HAND SCREEN PRINTER, only Tylenol for headache Abdomen soft, flat, non-tender, incision and stoma healing nicely Urine 2150 BCIR ileo 120 Imp. Ileus resolved Plan: Clear liquid diet d/c antibiotics and HAND SCREEN PRINTER; [place] 5/325 prn D/C Holguin Maintain continuous drainage of Frye continent ileostomy pouch f/u labs in TONY REYEZ Oct 09, 2016 09:02
[2016-10-09 12:00] VITALS: BP 159/83
[2016-10-09 16:00] VITALS: BP 118/73
[2016-10-09 20:00] VITALS: BP 120/74
[2016-10-10] VITALS (7 sets, daily range): BP systolic 100–148; BP diastolic 68–81
[2016-10-10] MEDS: Acetaminophen 650mg/20.3ml ORAL PRN ×2 (03:04→09:50)
[2016-10-10 06:26] LABS: BASOPHILS % (AUTO) 1.9 % (0.0-2.0); EOSINOPHILS % (AUTO) 8.5 % (0.0-3.0); LYMPHOCYTES % (AUTO) 19.5 % (20.0-45.0); MEAN CORPUSCULAR HEMOGLOBIN 30.5 PG (27.0-31.0); MEAN CORPUSCULAR HGB CONC 34.4 G/DL (32.0-36.0); MEAN CORPUSCULAR VOLUME 89 FL (80-99); MEAN PLATELET VOLUME 7.5 FL (6.5-10.1); PLATELET COUNT 206 K/UL (150-450); RED BLOOD COUNT 4.68 M/UL (4.70-6.10); RED CELL DISTRIBUTION WIDTH 11.6 % (11.6-14.8); WHITE BLOOD COUNT 7.6 K/UL (4.8-10.8)
[2016-10-10] MEDS: D5 1/4NS w/KCl 20mEq 1,000 ML IV SCH ×2 (06:30→21:29)
[2016-10-10 07:02] LABS: ANION GAP 14 (5-15); CALCIUM 8.8 mg/dL (8.6-10.2); CARBON DIOXIDE 25 mEQ/L (20-30); CHLORIDE 99 mEQ/L (98-107); CREATININE 1.1 mg/dL (0.7-1.2); GLOMERULAR FILTRATION RATE > 60 mL/min (>60); HEMOLYSIS 1; POTASSIUM 3.7 mEQ/L (3.4-4.9); SODIUM 138 mEQ/L (135-145)
[2016-10-10] MEDS: Allopurinol 100mg Tab ORAL SCH (09:00)
--- NOTE | 2016-10-10 11:00 | General Progress Note ---
Progress Note Progress Note AVSS Tolerated clear liquids, voiding well, no cramping Abdomen soft, healing nicely Urine 2250 BCIR ileo 1320 WBC 7600 Hgb up 14.2 Platelets up 206,000 BMP - wnl Imp. Improving Plan: Full liquid diet decrease IV fluids Maintain continuous drainage of Frye continent ileostomy TONY GA Oct 10, 2016 11:00
[2016-10-10] MEDS ORDERED: NS Irrig 1000ml ONE (16:44)
[2016-10-10] MEDS: Norco 5mg/325mg tab ORAL PRN (18:49)
[2016-10-11] MEDS: Norco 5mg/325mg tab ORAL PRN (00:41)
[2016-10-11 04:00] VITALS: BP 101/66
[2016-10-11 07:32] VITALS: BP 125/72
[2016-10-11] MEDS ORDERED: Ascorbic Acid 500mg tab ORAL PRN (08:45)
--- NOTE | 2016-10-11 08:46 | General Progress Note ---
Progress Note Progress Note AVSS Tolerated full liquid diet without cramping, but having excessive ileostomy output Abdomen soft, flat, healing well Urine 1600 BCIR ileo 1790 Imp. High output ileostomy Plan: Stool for C.diff toxin BCIR low residue diet Continue IV fluids; f/u labs TONY GA Oct 11, 2016 08:46
[2016-10-11] MEDS: Allopurinol 100mg Tab ORAL SCH (09:15)
[2016-10-11 12:00] VITALS: BP 133/63
[2016-10-11] MEDS: Acetaminophen 650mg/20.3ml ORAL PRN ×2 (12:15→22:49)
[2016-10-11] MEDS: D5 1/4NS w/KCl 20mEq 1,000 ML IV SCH (14:57)
[2016-10-11 16:00] VITALS: BP 108/73
[2016-10-11] MEDS ORDERED: NS Irrig 1000ml ONE (17:04)
[2016-10-11 20:00] VITALS: BP 133/80
[2016-10-12] VITALS: BP 117/79
[2016-10-12 04:00] VITALS: BP 121/77
[2016-10-12 07:05] LABS: BASOPHILS % (AUTO) 1.6 % (0.0-2.0); EOSINOPHILS % (AUTO) 6.6 % (0.0-3.0); LYMPHOCYTES % (AUTO) 14.7 % (20.0-45.0); MEAN CORPUSCULAR HEMOGLOBIN 30.7 PG (27.0-31.0); MEAN CORPUSCULAR HGB CONC 34.1 G/DL (32.0-36.0); MEAN CORPUSCULAR VOLUME 90 FL (80-99); MEAN PLATELET VOLUME 7.7 FL (6.5-10.1); MONOCYTES % (AUTO) 8.3 % (1.0-10.0); NEUTROPHILS % (AUTO) 68.9 % (45.0-75.0); PLATELET COUNT 227 K/UL (150-450); RED BLOOD COUNT 4.57 M/UL (4.70-6.10); WHITE BLOOD COUNT 9.6 K/UL (4.8-10.8)
[2016-10-12 07:11] LABS: ANION GAP 14 (5-15); CALCIUM 8.9 mg/dL (8.6-10.2); CARBON DIOXIDE 26 mEQ/L (20-30); CHLORIDE 98 mEQ/L (98-107); CREATININE 1.2 mg/dL (0.7-1.2); GLOMERULAR FILTRATION RATE > 60 mL/min (>60); HEMOLYSIS 2; POTASSIUM 4.3 mEQ/L (3.4-4.9); SODIUM 138 mEQ/L (135-145)
[2016-10-12 07:58] VITALS: BP 123/76
[2016-10-12] MEDS: Allopurinol 100mg Tab ORAL SCH (08:22)
[2016-10-12] MEDS ORDERED: LORazepam 1mg tab SL PRN ×2 (09:45→11:00)
--- NOTE | 2016-10-12 09:54 | General Progress Note ---
Progress Note Progress Note AVSS Eating BCIR diet and no abdominal cramps or gas pains. Abdomen soft, healing nicely Urine 1700 BCIR ileo increased volume 2370cc WBC 9600 Hgb 14.1 Platelets 227,000 - all stable BMP ok with slight increase BUN 15 and Cr 1.2 C. difficile toxin result still pending Imp. High volume ileostomy output R/O bacterial overgrowth enteritis Plan: continue IV fluids supplementation in addition to oral diet in view of high GI losses strict I&O Maintain continuous drainage of BCIR continent ileostomy pouch Await C. diff toxin report TONY GA Oct 12, 2016 09:54
[2016-10-12] MEDS: D5 1/4NS w/KCl 20mEq 1,000 ML IV SCH (11:00)
[2016-10-12 12:35] VITALS: BP 131/78
[2016-10-12 15:58] VITALS: BP 143/100
[2016-10-12] MEDS: Acetaminophen 650mg/20.3ml ORAL PRN (19:43)
[2016-10-12 20:19] VITALS: BP 134/69
[2016-10-13] VITALS: BP 134/77
[2016-10-13] MEDS: D5 1/4NS w/KCl 20mEq 1,000 ML IV SCH (02:03)
[2016-10-13 04:00] VITALS: BP 128/78
[2016-10-13 08:18] VITALS: BP 132/76
[2016-10-13] MEDS: Allopurinol 100mg Tab ORAL SCH (08:50)
--- NOTE | 2016-10-13 08:54 | General Progress Note ---
Progress Note Progress Note AVSS Tolerating low residue BCIR diet. C. diff toxin - negative Abdomen soft, flat, healing well BCIR ileo catheter removed - reinserts easily Urine 1200 BCIR ileo 2155 Imp. Improved Plan: RN supervised BCIR self-intubations q3h am to hs and prn d/c IV fluids after current liter is infused, then remove PIC line prepare discharge supplies for tomorrow discharge if intubations go well TONY GA Oct 13, 2016 08:54
[2016-10-13] MEDS: Acetaminophen 650mg/20.3ml ORAL PRN (10:59)
[2016-10-13] MEDS ORDERED: D5 1/4NS w/KCl 20mEq 1,000 ML IV SCH (11:30)
[2016-10-13 12:48] VITALS: BP 130/72
[2016-10-13 16:00] VITALS: BP 137/76
[2016-10-13 20:00] VITALS: BP 128/79
[2016-10-14 00:53] VITALS: BP 103/60
[2016-10-14 04:21] VITALS: BP 102/78
[2016-10-14 08:00] VITALS: BP 123/72
[2016-10-14] MEDS: Allopurinol 100mg Tab ORAL SCH (08:28)
--- NOTE | 2016-10-14 09:31 | General Progress Note ---
Progress Note Progress Note AVSS Patient intubated his Frye pouch successfully all day with 30Fr Summer until 0300 met resistance - used 24 fr catheter. Then at 0630 intubated without any difficulty with 30Fr Summer again. He feels he is getting pouchitis with watery output and prodromal symptoms Abd soft. Ai removed and steristrips applied. Stoma stable Urine 1175 BCIr ileo 1075 Imp. Improved Mild pouchitis with bowel spasms with intubation Plan: Cefdinir 300mg po q12h - start now (he has his own meds) Resume Dr. Fisher's probiotic tomorrow mid-day To use whatever intubation catheter enters readily (provided Holguin 28 and 26 Fr. plus 24 Fr Medena, and 30Fr Summer) Discharge today Full supplies/instructions/limitations provided and discussed F/U office 10/17 and TONY Pacheco Oct 14, 2016 09:31
[2016-10-14 12:13] VITALS: BP 126/88
[2016-10-14] MEDS ORDERED: NS Irrig 1000ml ONE (13:37)
--- NOTE | 2016-10-17 09:05 | Discharge Summary ---
Discharge Summary Hospital Course Date of Admission Oct 04, 2016 at 07:55 Date of Discharge Oct 14, 2016 at 13:38 Admitting Diagnosis MALFUNCTIONING OF VIDYA POUC Reason for Hospitalization: elective surgery HPI Erik Whitt is a 66 year old male with history of ulcerative colitis and multiple abdominal operations , was admitted on Oct 04, 2016 at 07:55 for Malfunctioning Of Frye Pouch and elective surgery. Procedures 10/04dr. Reyes - Frye continent ileostomy pouch endoscopy. 10/05 - dr Reyes -Laparotomy with revision of Frye continent ileostomy access segment and stoma. Hospital Course Course of recovery was uneventful Surgeon closely followed afebrile, no leukocytosis stool for C dif negative abx pain management Cefdinir 300mg po q12h - started prior to discharge Probiotics to be resumed in am tomorrow mid-day Use whatever intubation catheter enters readily (provided with Holguin 28 and 26 Fr. plus 24 Fr Medena, and 30Fr Summer) Full supplies/instructions/limitations provided and discussed F/U office 10/17 and prn DISCHARGE DIAGNOSIS 1. 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 2. History of ulcerative colitis. 3. Status post proctocolectomy and Frye pouch with several revisions. 4. s/p laparotomy with revision of Frye continent ileostomy access segment and stoma on 10/05/16 5. Status post multiple abdominal operations. 5.1. Proctocolectomy and Frye continent ileostomy in 11/1999. 5.2. Laparotomy with revision of Frye continent ileostomy nipple valve in 02/2000. 5.3. Laparotomy with creation of new valve and stoma with preservation of the Frye pouch and relocation of the stoma to the left lower quadrant on 07/24/2013. 5.4. Laparotomy with complex reconstruction of Frye continent ileostomy with creation of new valve and stoma on 12/26/2013. 6. History of left upper extremity deep vein thrombosis from a PICC line in 2013. Discharge Medications Continued Medications: Allopurinol* (Allopurinol*) 100 Mg Tablet 200 MG ORAL DAILY, TAB Multivitamin (Daily Multiple Vitamin) 1 Each Tablet 1 TAB ORAL DAILY, #30 TAB 0 Refills Discontinued Medications: Allopurinol* (Allopurinol*) 100 Mg Tablet 200 MG ORAL DAILY, TAB Discharge Condition Upon Discharge: stable Discharge Disposition Patient was discharged to Home (01) Discharge Diagnoses: Discharge Instructions Discharge Instructions Special Instructions I have been assigned to complete a D/C Summary on this account. I was not involved in the patient management Angelica Ramirez NP ([place]te[place]) Oct 17, 2016 09:05
--- NOTE | 2016-10-21 02:59 | Discharge Summary ---
DATE OF ADMISSION: 10/04/2016 DATE OF DISCHARGE: 10/14/2016 HISTORY OF PRESENT ILLNESS: The patient is a 66-year-old male in overall good health with a malfunctioning Frye continent ileostomy with intermittent difficulty with intubation and recurring pouchitis. The patient has a past history of ulcerative colitis and underwent proctocolectomy with creation of a Frye type of continent ileostomy in 1999. He has required several revisions, most recently in 2013. He has taken Cipro and Flagyl for occasional episodes of pouchitis over the years. In August of this year, he developed difficulty inserting his catheter when it was almost all the way into his pouch using his 30-Surinamese catheter, but he was able to manipulate a 24-Surinamese catheter into place. He also had difficulty controlling symptoms of pouchitis with gas and rumbling, and watery diarrheal output. Because Cipro and Flagyl were not effective, he was started on cefdinir 300 mg every 12 hours with significant improvement, but he still has difficulty intubating. Sometimes he has to lie on the floor and takes 5 minutes to get his catheter in. The patient was admitted to undergo pouch endoscopy and preparation for surgical revision. MEDICATIONS: Cipro and Flagyl for pouchitis. ALLERGIES: None. OPERATIONS: See the complete list at the end of this dictation. REVIEW OF SYSTEMS: The patient underwent extraction of right ureteral kidney stone in October 2003 with a stent at that time and has undergone varicocelectomy in 1984 and vasectomy in 1989. Physical Examination: The patient was 5 feet 10 inches, 175 pounds. The abdomen was soft and flat with multiple healed scars. The stoma of the Frye continent ileostomy was low in the left lower quadrant. There was no evidence of abdominal wall hernia. HOSPITAL COURSE: The patient underwent Frye Continent Ileostomy pouch endoscopy revealing multiple angulations of the access segment, but the pouch itself was healthy without signs of chronic pouchitis and the nipple valve was well formed. The patient underwent insertion of a dual lumen PICC line, bowel prep, intravenous hydration, and preoperative intravenous antibiotics and subcutaneous heparin. He was taken to the operating room on 10/05/2016 and underwent laparotomy with revision of the Frye continent ileostomy access segment and stoma. 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 His admission hemoglobin was 15.5 but after overnight hydration if fell slightly to 14.7, and fell to 12.3 and then janny back to 14.1 by the time of discharge. He had an ileus and urinary Holguin catheter as well. His continuous basal infusion of the NATIONAL SALES EXECUTIVE was discontinued on the second postoperative day and nausea was relieved with Reglan intravenously. His urinary Holguin catheter and antibiotics were discontinued on the fourth postoperative day and he voided well, and he was able to be started on a clear liquid diet. He tolerated his diet, which was advanced to a low-residue diet. He also developed high volume ileostomy output, nearly 1800 mL in 24 hours. Stool for C. difficile toxin was negative, but he required ongoing intravenous fluids with ileostomy output of nearly 2400ml/24 hours. As he tolerated the low-residue diet his ileostomy output became more normal. His indwelling Frye pouch catheter was removed on the eighth postoperative day and was able to be reinserted readily. His intravenous fluids were discontinued and the PICC line was removed. He self-intubated successfully throughout the day with his 30-Surinamese Summer silicone catheter until he had difficulty at 3am in the morning and used a 24-Surinamese catheter. At 6:30 a.m., he intubated again without any difficulty with a 30-Surinamese catheter. He felt like he was getting pouchitis with his typical prodromal symptoms and some watery output although the total volume was only 1075 mL. He was started back on Cefdinir 300 mg p.o. every 12 hours. He was stable for discharge with jesus removed and Steri-Strips applied, and incision well healed as well as the stoma healing nicely in the left lower quadrant. He was provided no discharge prescriptions, to continue his Cefdinir at home for several more days, and to resume his probiotics in between doses of the antibiotic. Full supplies, instructions, and limitations were provided and discussed. He was provided with a variety of catheters including 28-Surinamese and 26-Surinamese Holguin catheter, 24-Surinamese Medena, and 30-Surinamese Summer catheters. He is to be followed in the office in 3 days and prn. DISCHARGE DIAGNOSES: 1. 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 2. History of ulcerative colitis. 3. Status post multiple abdominal operations. 3.1. Proctocolectomy and Frye continent ileostomy November 2001. 3.2. Laparotomy with revision of Frye continent ileostomy valve February 2003 3.3. Laparotomy with creation of new valve and stoma with preservation of the Frye pouch and relocation of the stoma to the left lower quadrant in July 2013. 3.4. Laparotomy with reconstruction of Frye continent ileostomy with creation of new valve and stoma in December 2013. OPERATION PERFORMED ON THIS ADMISSION: Laparotomy with revision of Frye continent ileostomy stoma and access segment. Kaveh Reyes M.D. DR: LIGIA JOB#: [id number] MTDD
== END 2016-10-14 13:38 | disposition home or self-care (01) | DRG 330 ==
LOC: SDSOVERFLO 07:55 → 3E 09:21 → 4E 10-07 19:10 → 3E 10-09 09:14
PROC: 0DJD8ZZ Inspection of Lower Intestinal Tract, Via Natural or Artificial Opening Endoscopic (ICD-10-PCS; principal; 2016-10-04 08:48)
PROC: 0D1B0Z4 Bypass Ileum to Cutaneous, Open Approach (ICD-10-PCS; 2016-10-05)
PROC: 0WQFXZ2 Repair Abdominal Wall, Stoma, External Approach (ICD-10-PCS; 2016-10-05)
DX: K94.13 Enterostomy malfunction (principal); K91.850 Pouchitis; K56.7 Ileus, unspecified; Y83.3 Surgical operation with formation of external stoma as the cause of abnormal reaction of the patient, or of later complication, without mention of misadventure at the time of the procedure; K66.0 Peritoneal adhesions (postprocedural) (postinfection); Z86.718 Personal history of other venous thrombosis and embolism; Z87.19 Personal history of other diseases of the digestive system
CPT/HCPCS: 36415; 36569; 71010; 76937; 80048; 80053; 81001; 82607; 82728; 82746; 83540; 83550; 85025; 85610; 85730; 86850; 86900; 86901; 87081; 87493; 93005; 94003; 94150; J2405; J2765